=== PATIENT | male | born 1970 | race Caucasian/White ===

== ENCOUNTER → 2021-06-05 | Day surgery (SDC) | payer OTHER ==
[~2021-06-05] VITALS: Ht 190.5 cm; Wt 115.9 kg
[~2021-06-05] MED LIST: ASPIRIN EC81 MG PO; BRILINTA60 MG PO; CLARITIN10 MG PO; COREG 3.125M3.125 MG PO; COZAAR50 MG PO; LIPITOR40 MG PO; MEDROL 4MG DOSEP4 MG PO; METFORMIN HCL500 MG PO; NORCO 5-325 TA1 EACH PO; PRILOSEC20 MG PO; RANEXA500 MG PO; TESSALON PERLE100 M1 PO; ZETIA10 MG PO
== END | disposition home or self-care (01) ==
LOC: FAS 06:20
DX: Z12.11 Encounter for screening for malignant neoplasm of colon (principal); D12.3 Benign neoplasm of transverse colon; K57.30 Diverticulosis of large intestine without perforation or abscess without bleeding; E11.9 Type 2 diabetes mellitus without complications; I25.10 Atherosclerotic heart disease of native coronary artery without angina pectoris; E78.5 Hyperlipidemia, unspecified; K21.9 Gastro-esophageal reflux disease without esophagitis; I10 Essential (primary) hypertension; I25.2 Old myocardial infarction; Z95.5 Presence of coronary angioplasty implant and graft; Z79.82 Long term (current) use of aspirin; Z79.84 Long term (current) use of oral hypoglycemic drugs; Z79.899 Other long term (current) drug therapy
CPT/HCPCS: 82962; J2704; J7120